=== PATIENT | female | born 1975 | race African-American/Black ===

== ENCOUNTER 2021-09-13 12:44 | Emergency (ER) | payer OTHER ==
[2021-09-13 13:15] VITALS: BMI 50.0
[2021-09-13] MEDS ORDERED: ACETAMINOPHEN 1000 MG/100 ML BAG IVPB ONE (15:08)
[2021-09-13] MEDS ORDERED: ONDANSETRON 4 MG/2 ML VIAL IVPUSH ONE (15:08)
[2021-09-13] MEDS ORDERED: SODIUM CHLORIDE 0.9% 500 ML INFUS.BAG IV ONE (15:10)
[2021-09-13] MEDS ORDERED: ONDANSETRON 4 MG/2 ML VIAL ONE (15:20)
[2021-09-13] MEDS ORDERED: ACETAMINOPHEN INJECTION 100 ML IVPB ONE (15:20)
[2021-09-13 16:48] LABS: BASO % 0.5 % (0-2.0); EOS % 0.7 % (0-4.5); HEMATOCRIT 36.9 % (32.4-45.2); HEMOGLOBIN 11.9 GM/dL (10.7-15.3); LYMPH % 25.8 % (8-40); MCHC 32.3 g/dl (32.0-36.0); MEAN CELL VOLUME 80.6 fl (80-96); MEAN PLT VOLUME 9.4 fl (7.5-11.1); MONO % 5.8 % (3.8-10.2); NEUT % 67.2 % (42.8-82.8); PLATELET COUNT 236 10^3/uL (134-434); RBC 4.58 M/mm3 (3.60-5.2); RDW 15.9 % (11.6-15.6); WHITE BLOOD COUNT 9.2 K/mm3 (4.0-10.0)
[2021-09-13 16:56] LABS: INR 1.01 (0.83-1.09); PROTHROMBIN TIME (PATIENT) 11.6 SEC (9.7-13.0)
[2021-09-13 16:58] LABS: ACTIVATED PTT 25.3 SECONDS (25.2-36.5)
[2021-09-13 17:07] LABS: CHLORIDE 105 mmol/L (98-107); SODIUM 140 mmol/L (136-145)
[2021-09-13 17:10] LABS: ANION GAP 7 MMOL/L (8-16); CALCIUM 9.1 mg/dL (8.5-10.1); CO2 28 mmol/L (21-32); GLUCOSE,RANDOM 104 mg/dL (74-106)
[2021-09-13 17:11] LABS: ALBUMIN 3.4 g/dl (3.4-5.0); BLOOD UREA NITROGEN 11.8 mg/dL (7-18)
[2021-09-13 17:13] LABS: SGPT/ALT 19 U/L (13-61)
[2021-09-13 17:14] LABS: CREATININE 0.8 mg/dL (0.55-1.3); SGOT/AST 18 U/L (15-37)
[2021-09-13 17:15] LABS: BILIRUBIN,TOTAL 0.5 mg/dL (0.2-1); TOT PROT 7.1 g/dl (6.4-8.2)
[2021-09-13 17:16] LABS: ALK PHOS 81 U/L (45-117)
[2021-09-13 17:56] VITALS: BP 167/93; PULSE 75; TEMP 98.4
[2021-09-13] MEDS ORDERED: KETOROLAC TROMETHAMINE 30 MG/1 ML VIAL IVPUSH ONE (18:50)
[2021-09-13] MEDS ORDERED: KETOROLAC TROMETHAMINE 15 MG/ML VIAL IVPUSH ONE (18:51)
[2021-09-13] MEDS ORDERED: KETOROLAC TROMETHAMINE 30 MG/1 ML VIAL ONE (18:54)
== END 2021-09-13 21:15 | disposition home or self-care (01) ==
LOC: JER 12:44
PROC: 3E0333Z Introduction of Anti-inflammatory into Peripheral Vein, Percutaneous Approach (ICD-10-PCS; principal; 2021-09-13)
PROC: 3E0333Z Introduction of Anti-inflammatory into Peripheral Vein, Percutaneous Approach (ICD-10-PCS; 2021-09-13)
PROC: 3E033GC Introduction of Other Therapeutic Substance into Peripheral Vein, Percutaneous Approach (ICD-10-PCS; 2021-09-13)
DX: N93.8 Other specified abnormal uterine and vaginal bleeding (principal)
CPT/HCPCS: 36415; 76830-TC; 80053; 84702; 85025; 85610; 85730; 86850; 86900; 86901; 99284-25

== ENCOUNTER 2021-11-02 10:44 | Day surgery (SDC) | payer OTHER ==
[2021-11-01 12:11] VITALS: BMI 50.1
[2021-11-02] MEDS ORDERED: MIDAZOLAM HCL 2 MG/2 ML SINGLE DOSE VIAL ONE (11:05)
[2021-11-02] MEDS ORDERED: FENTANYL CITRATE/PF 50 MCG/ML VIAL ONE (11:06)
[2021-11-02] MEDS ORDERED: ROPIVACAINE HCL/PF 100 MG/20 ML VIAL ONE (11:06)
[2021-11-02] MEDS ORDERED: DEXAMETHASONE SOD PHOSPHATE 10 MG/1 ML VIAL ONE (11:06)
[2021-11-02] MEDS ORDERED: ceFAZolin SODIUM 1 GM VIAL ONE (11:58)
[2021-11-02] MEDS ORDERED: DEXAMETHASONE SOD PHOSPHATE 4 MG/1 ML VIAL ONE (12:01)
[2021-11-02] MEDS ORDERED: ONDANSETRON 4 MG/2 ML VIAL ONE (12:01)
[2021-11-02] MEDS ORDERED: PROPOFOL 20 ML ONE ×2 (12:26→12:49)
[2021-11-02] MEDS ORDERED: PROPOFOL 40 ML ONE (13:14)
[2021-11-02 13:44] VITALS: BP 126/91; RESP 16
[2021-11-02 14:09] VITALS: PULSE 70
[2021-11-02 15:02] VITALS: TEMP 97
== END 2021-11-02 14:59 | disposition home or self-care (01) ==
LOC: FASU 10:44
PROVIDERS: ATTEND Orthopaedic Surgery Hand Surgery
PROC: 0XQG0ZZ Repair Right Wrist Region, Open Approach (ICD-10-PCS; principal; 2021-11-02 12:09)
DX: S63.591A Other specified sprain of right wrist, initial encounter (principal); X58.XXXA Exposure to other specified factors, initial encounter; Y92.9 Unspecified place or not applicable; Y93.9 Activity, unspecified
CPT/HCPCS: 25320; C1713; 73110-TC-RT-FY; 84703; J1100